=== PATIENT | female | born 1985 | race Asian ===

== ENCOUNTER → 2016-12-28 | Outpatient (CLI) | payer MEDICAID, OTHER ==
--- NOTE | 2016-12-29 20:15 | CR ---
EXAMINATION: Two-view chest (PA and Lateral views). HISTORY: Respiratory infection. FINDINGS: The trachea is midline. The cardiomediastinal silhouette is within normal limits. No pulmonary infil trates, effusions or pneumothorax. Osseous structures appear unremarkable. IMPRESSION: No acute cardiopulmonary process.
== END | disposition home or self-care (01) ==
LOC: MW.DI 10:35
PROVIDERS: ATTEND Physician Assistant
DX: J06.9 Acute upper respiratory infection, unspecified (principal)
CPT/HCPCS: 71020; 71020-26

== ENCOUNTER → 2016-12-29 | Outpatient (CLI) | payer MEDICAID, OTHER ==
--- NOTE | 2016-12-29 20:17 | US ---
EXAMINATION: Soft tissue ultrasound of the neck HISTORY: Swelling COMPARISON: None TECHNIQUE: Grayscale and color Doppler images obtained within the region of concern in the supraclav icular areas bilaterally. FINDINGS: No abnormal masses or fluid collections identified. No skin thickening or abnormal color D oppler flow. No suspicious sonographic abdomen is identified. No lymphadenopathy. IMPRESSION: No sonographic abnormalities identified within the regions of concern.
== END ==
LOC: MW.US 11:23
PROVIDERS: ATTEND Physician Assistant
DX: R22.1 Localized swelling, mass and lump, neck (principal)
CPT/HCPCS: 76536-LT

== ENCOUNTER → 2017-01-23 | Outpatient (CLI) | payer MEDICAID | LOC: MW.CHFP 14:17 | PROVIDERS: ATTEND Physician Assistant | DX: R22.1 Localized swelling, mass and lump, neck (principal) | CPT/HCPCS: 36415; 85025; 85652 ==

== ENCOUNTER → 2017-02-10 | Outpatient (CLI) | payer MEDICAID ==
[2017-02-10 08:32] LABS: CHLORIDE,CL 105 mmol/L (98-110); SODIUM,NA 139 mmol/L (136-146)
== END | disposition home or self-care (01) ==
LOC: MW.LAB 07:39
PROVIDERS: ATTEND Family Medicine
DX: R00.2 Palpitations (principal); M25.449 Effusion, unspecified hand
CPT/HCPCS: 36415; 80053; 84439; 84443; 86430